=== PATIENT | female | born 2005 | race Caucasian/White ===

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

== ENCOUNTER → 2024-03-10 | Outpatient (CLI) | payer MEDICAID ==
[~2024-03-10] MED LIST: ZOFRAN ODT4 MG PO
[2024-03-10 10:13] LABS: CLUE CELLS PRESENT (Not Observd)
== END ==
LOC: LAB 09:51
PROVIDERS: Nurse Practitioner Family
DX: L29.3 Anogenital pruritus, unspecified (principal); Z20.2 Contact with and (suspected) exposure to infections with a predominantly sexual mode of transmission
CPT/HCPCS: Q0111